=== PATIENT | female | born 1995 | race Caucasian/White ===

== ENCOUNTER 2016-10-12 15:11 | Emergency (ER) | payer MEDICAID ==
[2016-10-12 15:35] VITALS: TEMP 98.4; BMI 39.1
[2016-10-12 15:52] LABS: AUTOMATED BASOPHIL 0.5 % (0-2); AUTOMATED EOSINOPHIL 5.1 % (0-5); AUTOMATED LYMPH 17.5 % (17-44); AUTOMATED MONOCYTE 5.8 % (3-10); AUTOMATED NEUTROPHIL 71.1 % (45-76); MPV 8.8 fL (7.4-10.4)
[2016-10-12 16:11] LABS: LEUKOCYTES/URINE NEG (NEGATIVE); NITRITE/URINE NEG (NEGATIVE); RBC/URINE 0-2 (0-5); URINE OCCULT BLOOD NEG (NEG/TRACE); WBC/URINE 0-2 (0-5)
[2016-10-12 16:12] LABS: BLOOD UREA NITROGEN 10 MG/DL (7-17); CALC CORRECTED 9.3 MG/DL (8.4-10.2); CALCIUM 9.2 MG/DL (8.4-10.2); CALCULATED OSMOLALITY 265 MOs/Kg (270-290); CHLORIDE 105 mEq/L (98-107); GLUCOSE 103 MG/DL (70-99); SODIUM LEVEL 138 mEq/L (137-146)
[2016-10-12 17:02] LABS: QUANTITATIVE SERUM HCG 90799.2 mIU/mL (<5)
--- NOTE | 2016-10-12 17:17 | EDPRACDOC ---
- General Information Chief Complaint: Vaginal Bleeding Stated Complaint: ABD PAIN 10 WKS PREG.VAGINAL BLEEDING SPOTTING X 2 Time Seen by Provider: 10/12/16 17:11 Information Source: Patient Home Medications: Home Medications Albuterol Sulfate [Proair Hfa] 2 puff INH Q4-6H PRN 10/12/16 Vits W-Ca,Fe,FA(<1Mg) [] 1 tab PO DAILY 10/12/16 Allergies/Adverse Reactions: Allergies Allergy/AdvReac Type Severity Reaction Status Date / Time latex Allergy Severe Rash-Genera Verified 05/07/16 21:01 lized - History of Present Illness Onset: 2 weeks HPI: PT 10 WEEKS PREG TOMORROW. PT WITH VAGINAL BLEEDING 2 SUNDAYS AGO. HEAVY INITIALLY. SINCE THEN JUST SPOTTING. AND A LOT OF CRAMPING. NAUSEA AND VOMITING. . A+ BLOOD TYPE. Description: Reports: Spontaneous ED Past Medical History - History Reviewed Yes Nurses notes reviewed and agree except as marked - Patient Medical History Respiratory History: Reports: Asthma GI/ History: Denies: Urinary Tract Infection Psychological History: Reports: Depression Systemic History: Reports: Anemia. Denies: Cancer - Family Medical History Reports: Diabetes, Stroke. Denies: Hypertension, Cancer, Cardiac Disorders - Social Medical History Smoking Status: Never smoker EDM Review of Systems - Review of Systems ROS Negative Except as Marked: Yes All systems reviewed and were negative except as marked Constitutional: No Symptoms Reported Gastrointestinal: Other (CRAMPS.) Neurological: No Symptoms Reported Musculoskeletal: No Symptoms Reported Integumentary: No Symptoms Reported Allergic/Immunologic: No Symptoms Reported Hematologic: No Symptoms Reported Endocrine: No Symptoms Reported - Physical Exam Constitutional: Alert (Awake), No apparent distress Oriented to: Time, Person, Place Last recorded Vital Signs: Last Vital Signs Temp 98.4 F 10/12/16 15:33 Pulse 88 10/12/16 15:33 Resp 18 10/12/16 15:33 BP 125/64 10/12/16 15:33 Pulse Ox 98 10/12/16 15:33 Oxygen Pulse Oxygen Saturation 98 O2 Device Room Air Oxygen Flow Rate Fraction of Inspired Oxygen ( FIO2) - HEENT Head: Normal ( normocephalic) Eye Exam: Normal (PERRL, EOMI, Sclera white) Oropharynx: Normal (Pharynx:Moist without exudate,Gums-no swelling) Nose: No Symptoms Reported (septum midline) Neck: Normal (FROM, trachea at midline) - Respiratory/Cardiovascular Respiratory: Normal - CTA (BBS clear to auscultation without adventitious sounds ) Cardiovascular: Normal (RRR without murmur, gallop or rub) - GI Auscultation: Normal (NABS) Palpation: Normal (Soft,No rebound or guarding, non distended) Tenderness: Non tender Ness's Sign: Negative - Musculoskeletal Back: Normal (Non-Tender) Extremities: Normal (Normal tone, Pulses 2+ No cyanosis or edema, FROM) - Integumentary Skin: Normal, Warm, Dry Lymphatics: Normal (no adenopathy) - Neurologic Memory Impaired: Normal Motor Function: Normal (Normal tone, Pulses 2+ No cyanosis or edema, FROM) Cranial Nerve: Normal (CN II-X11 intact sensation, strength 5/5) Cerebellar: Normal Mood Description: Normal Perception: Normal ED Vaginal Exam Vaginal Discharge: None Cervix: Normal ED Procedures - Ultrasound: Pelvis Indication: , Bleeding Trimester: 1st Views: Trans-abdominal Fetus: Heart Rate (154 WITH MOVEMENT.) - Results 10/12/16 15:36 10/12/16 15:36 WBC 13.6 xk/uL (3.8-10.8) H 10/12/16 15:36 RBC 4.93 xM/uL (4.20-5.40) 10/12/16 15:36 Hgb 12.8 g/dL (12.0-16.0) 10/12/16 15:36 Hct 40.0 % (36-47) 10/12/16 15:36 MCV 81 fL (81-99) 10/12/16 15:36 MCH 26.0 pg (27-32) L 10/12/16 15:36 MCHC 32.1 g/dl (33-36) L 10/12/16 15:36 RDW 13.3 % (11.5-14.5) 10/12/16 15:36 Plt Count 246 xk/uL (130-400) 10/12/16 15:36 MPV 8.8 fL (7.4-10.4) 10/12/16 15:36 Neut % (Auto) 71.1 % (45-76) 10/12/16 15:36 Lymph % (Auto) 17.5 % (17-44) 10/12/16 15:36 [place] % (Auto) 5.8 % (3-10) 10/12/16 15:36 Eos % (Auto) 5.1 % (0-5) H 10/12/16 15:36 Baso % (Auto) 0.5 % (0-2) 10/12/16 15:36 Absolute Neuts (auto) 9.66 xk/uL (1.7-8.2) H 10/12/16 15:36 Absolute Lymphs (auto) 2.31 xk/uL (0.65-4.75) 10/12/16 15:36 Sodium 138 mEq/L (137-146) 10/12/16 15:36 Potassium 3.8 mEq/L (3.5-5.1) 10/12/16 15:36 Chloride 105 mEq/L (98-107) 10/12/16 15:36 Carbon Dioxide 21 mMOL/L (22-33) L 10/12/16 15:36 Anion Gap 16 mEq/L (8-16) 10/12/16 15:36 BUN 10 MG/DL (7-17) 10/12/16 15:36 Creatinine 0.80 MG/DL (0.52-1.04) 10/12/16 15:36 Estimated GFR (MDRD) > 60 mL/min (>=60) 10/12/16 15:36 Glucose 103 MG/DL (70-99) H 10/12/16 15:36 Calculated Osmolality 265 MOs/Kg (270-290) L 10/12/16 15:36 Calcium 9.2 MG/DL (8.4-10.2) 10/12/16 15:36 Corrected Calcium 9.3 MG/DL (8.4-10.2) 10/12/16 15:36 Total Bilirubin 0.2 MG/DL (0.2-1.3) 10/12/16 15:36 AST 20 IU/L (14-36) 10/12/16 15:36 ALT 24 IU/L (9-52) 10/12/16 15:36 Alkaline Phosphatase 77 IU/L (38-126) 10/12/16 15:36 Total Protein 7.0 G/DL (6.3-8.2) 10/12/16 15:36 Albumin 3.9 G/DL (3.5-5.0) 10/12/16 15:36 Beta HCG, Quant 37974.2 mIU/mL (<5) 10/12/16 15:36 Urine Color Pale yellow 10/12/16 15:37 Urine Clarity Clear 10/12/16 15:37 Urine pH 7.0 (5.0-8.0) 10/12/16 15:37 Ur Specific [place] 1.015 (1.003-1.035) 10/12/16 15:37 Urine Protein Neg (NEG/TRACE) 10/12/16 15:37 Urine Glucose (UA) Neg (NEGATIVE) 10/12/16 15:37 Urine Ketones Neg (NEGATIVE) 10/12/16 15:37 Urine Occult Blood Neg (NEG/TRACE) 10/12/16 15:37 Urine Nitrite Neg (NEGATIVE) 10/12/16 15:37 Urine Bilirubin Neg (NEGATIVE) 10/12/16 15:37 Urine Urobilinogen <2.0 MG/DL (0-1) 10/12/16 15:37 Ur Leukocyte Esterase Neg (NEGATIVE) 10/12/16 15:37 Urine RBC 0-2 (0-5) 10/12/16 15:37 Urine WBC 0-2 (0-5) 10/12/16 15:37 Ur Epithelial Cells 2+ 10/12/16 15:37 Urine Bacteria Few (NEG/FEW) 10/12/16 15:37 Urine Mucus Occ (NEG/OCC) 10/12/16 15:37 Lab Results 10/12/16 10/12/16 10/12/16 15:37 15:36 15:36 WBC 13.6 H RBC 4.93 Hgb 12.8 Hct 40.0 MCV 81 MCH 26.0 L MCHC 32.1 L RDW 13.3 Plt Count 246 MPV 8.8 Neut % (Auto) 71.1 Lymph % (Auto) 17.5 [place] % (Auto) 5.8 Eos % (Auto) 5.1 H Baso % (Auto) 0.5 Absolute Neuts (auto) 9.66 H Absolute Lymphs (auto) 2.31 Sodium 138 Potassium 3.8 Chloride 105 Carbon Dioxide 21 L Anion Gap 16 BUN 10 Creatinine 0.80 Estimated GFR (MDRD) > 60 Glucose 103 H Calculated Osmolality 265 L Calcium 9.2 Corrected Calcium 9.3 Total Bilirubin 0.2 AST 20 ALT 24 Alkaline Phosphatase 77 Total Protein 7.0 Albumin 3.9 Beta HCG, Quant 24043.2 Urine Color Pale yellow Urine Clarity Clear Urine pH 7.0 Ur Specific [place] 1.015 Urine Protein Neg Urine Glucose (UA) Neg Urine Ketones Neg Urine Occult Blood Neg Urine Nitrite Neg Urine Bilirubin Neg Urine Urobilinogen <2.0 Ur Leukocyte Esterase Neg Urine RBC 0-2 Urine WBC 0-2 Ur Epithelial Cells 2+ Urine Bacteria Few Urine Mucus Occ Decision Time to Discharge: 18:28 - Departure Yes I personally saw and evaluated the patient. Disposition: Home Condition: Stable Final Diagnosis: Threatened miscarriage Instructions: Dysfunctional Uterine Bleeding (ED) Education/Counseling Given To: Patient Education/Counseling Given Regarding: Diagnosis Referrals: Renee Kelley DO [Staff Physician] - One Week Prescriptions: No Action Albuterol Sulfate [Proair Hfa] 2 puff INH Q4-6H PRN PRN Reason: Shortness Of Breath Vits W-Ca,Fe,FA(<1Mg) [] 1 tab PO DAILY Additional Instructions: PELVIC REST.
[2016-10-12] MEDS ORDERED: NS 1,000 ML IV ONE (17:24)
[2016-10-12 18:41] VITALS: BP 112/64; PULSE 74
[2016-10-14 12:39] LABS: CHLAMY BY NUCLEIC ACID AMP Negative (Negative)
[2016-10-14 14:20] LABS: GC BY NUCLEIC ACID AMP Negative (Negative)
== END 2016-10-12 18:40 | disposition home or self-care (01) ==
LOC: ED 15:11
DX: O20.0 Threatened abortion (principal); Z3A.09 9 weeks gestation of pregnancy
CPT/HCPCS: 36415; 80053; 81001; 84702; 85025; 87210; 87220; 87491; 87591; 96360; 99284